=== PATIENT | female | born 1950 | race African-American/Black ===

== ENCOUNTER 2018-01-28 12:36 | Emergency (ER) | payer MEDICARE, SELFPAY ==
[~2018-01-28] VITALS: Ht 160 cm; Wt 61.7 kg
[~2018-01-28 12:36] MED LIST: PEPCID20 MG ORAL; ZOFRAN4 MG ORAL
[2018-01-28] MEDS ORDERED: CRESTOR20 MG ORAL (13:02)
[2018-01-28] MEDS ORDERED: LOSARTAN POTASS50 MG ORAL (13:02)
[2018-01-28] MEDS ORDERED: AMLODIPINE BESYL5 MG ORAL (13:02)
[2018-01-28] MEDS ORDERED: METOPROLOL TART25 MG ORAL (13:02)
--- NOTE | 2018-01-28 13:10 | Emergency Room Report ---
History of Present Illness General Chief Complaint: General Complaint Source: Patient Present Illness HPI ms. Real is a very pleasant 67 yo female with hx of HTN and dyslipidemia who presents with Palpitations for the last 1-2 months. She's been evaluated by several physicians at [facility] including PCP, staff pharmacist hospital and weft straightener. She's had a recent stress test 3-4 days ago which was normal. This test was arranged by her personal staff pharmacist hospital. She had a recent cardiac ultrasound which is normal. She also informed being that she was ruled out for lung clot. She is concerned that over the last 1-2 months she's had rapid heartbeat and slow heartbeat. Symptoms are worse at night She denies chest pain. Her shortness breath. She is quite scared because she has extensive family history of heart disease. She also desires evaluation of chronic rectal irritation from last 1-1/2 years. She's had rectal irritation related to colonoscopy and polypectomy last year. Allergies: Coded Allergies: No Known Allergies (Unverified , 01/02/13) Patient History Past Medical History: see triage record, old chart reviewed Reviewed Nursing Documentation: PMH: Agreed; PSxH: Agreed Nursing Documentation-PMH Past Medical History: No History, Except For Hx Cardiac Problems: Yes Hx Hypertension: Yes Hx Cancer: No Hx Gastrointestinal Problems: Yes - colonoscopy with polips removal Hx Neurological Problems: No Review of Systems Constitutional: Denies: fever, malaise Respiratory: Denies: cough Cardiovascular: Reports: palpitations; Denies: chest pain All Other Systems: negative except mentioned in HPI Physical Exam Vital Signs Date Time Temp Pulse Resp B/P (MAP) Pulse Ox O2 Delivery O2 Flow Rate FiO2 01/28/18 12:42 98.4 71 17 125/77 94 Room Air 98.4 Sp02 EP Interpretation: reviewed, normal General Appearance: no apparent distress, alert, GCS 15, non-toxic Head: normocephalic, atraumatic Eyes: bilateral eye normal inspection ENT: hearing grossly normal, normal pharynx, no angioedema, normal voice Neck: full range of motion, supple/symm/no masses Respiratory: chest non-tender, lungs clear, normal breath sounds, speaking full sentences Cardiovascular #1: regular rate, rhythm, no edema, no gallop, no JVD, no murmur Gastrointestinal: normal bowel sounds, non tender, soft, non-distended, no guarding, no rebound Musculoskeletal: back normal, gait/station normal, normal range of motion, non- tender Neurologic: alert, oriented x3, responsive, motor strength/tone normal, sensory intact, speech normal Psychiatric: judgement/insight normal, memory normal, mood/affect normal, no suicidal/homicidal ideation Skin: normal color, no rash, warm/dry, well hydrated Lymphatic: no adenopathy Medical Decision Making Diagnostic Impression: Primary Impression: Palpitations ER Course I reviewed electronic medical record. In 2013 she was ruled out for ACS. Her chest pain was considered to be noncardiac. Considering recent cardiac evaluation, do not suspect acute coronary syndrome. She did have occasional PVC seen on the cardiac monitoring she is given reassurance. Do not detect lethal arrhythmia. I do not suspect PE. I have referred pt to her personal weft straightener for evaluation of chronic rectal irritation I reviewed cardiology consultation in 2012. Patient had the same findings on EKG at that time as describe in the consultation. EKG Diagnostic Results EKG Time: 13:11 Rate: normal Rhythm: NSR Other Impression reate 60 BPM nl axis nl intervals inverted T wave inferior and lateral leads no ST elevation Last Vital Signs Date Time Temp Pulse Resp B/P (MAP) Pulse Ox O2 Delivery O2 Flow Rate FiO2 01/28/18 12:42 98.4 71 17 125/77 94 Room Air 98.4 Disposition: HOME, SELF-CARE Michelle Dailey MD Jan 28, 2018 13:10
[2018-01-28 13:36] VITALS: BP 112/53
[2018-01-28] MEDS ORDERED: Norco 5mg/325mg tab ORAL ONE (14:00)
[2018-01-28 14:02] VITALS: BP 143/53
--- NOTE | 2018-01-29 14:43 | Cardiology Report ---
APPROVED REPORT EKG Measurement Heart [id number] DC [id number] Sinus bradycardia T wave abnormality, consider inferior ischemia Abnormal ECG
== END 2018-01-28 14:29 | disposition home or self-care (01) ==
LOC: EMR 13:08
DX: R00.2 Palpitations (principal); I10 Essential (primary) hypertension
CPT/HCPCS: 93005; 99283